=== PATIENT | male | born 1970 | race Two or more races ===

== ENCOUNTER 2021-12-09 18:39 | Emergency (ER) | payer OTHER ==
[~2021-12-09] VITALS: Ht 175.3 cm; Wt 89.8 kg
[2021-12-09] MEDS ORDERED: GLUMETZA500 MG (19:01)
[2021-12-09] MEDS ORDERED: MEDROLPACK PO (21:42)
== END 2021-12-09 22:06 | disposition home or self-care (01) ==
LOC: ER 18:39
DX: I77.6 Arteritis, unspecified (principal); D69.6 Thrombocytopenia, unspecified; E11.9 Type 2 diabetes mellitus without complications; Z79.84 Long term (current) use of oral hypoglycemic drugs